=== PATIENT | male | born 1990 | race Caucasian/White ===

== ENCOUNTER 2017-04-26 08:59 | Emergency (ER) | payer OTHER ==
[2017-04-26 09:09] VITALS: BMI 26.6
[2017-04-26] MEDS ORDERED: LORazepam 1 MG TABLET PO ONE (09:32)
[2017-04-26] MEDS ORDERED: LORazepam 0.5 MG TABLET ONE (09:44)
--- NOTE | 2017-04-26 09:44 | PDOC ---
History of Present Illness <Shazia Koch - Last Filed: 04/26/17 10:13> - History of Present Illness Initial Comments: 04/26/17 09:48 "The patient is a 27 year old male, with a significant past medical history of severe anxiety (clonazepam as needed), who presents to the emergency department for evaluation of anxiety and feeling unsafe this morning. The patient states he has been under a great deal of stress at home recently. The patients sister reportedly attempted suicide last week, his grandfather was admitted to the hospital, and more recently, he states he has been having issues with his mothers home health aide. The patient states his boyfriend, at bedside, was attempting to help the aide fix their house phone yesterday when the aide became frustrated and called him horrible names. He states ""yesterday was my birthday so I thought it would be a better day for me"". The patient reports that this morning he was making efforts to call the company that provided the patients mother her home health aide, however, no one answered. He states he became increasingly more anxious on his way to work knowing the health aide would be in the house. He states he began to shake, then he froze to the point I couldn't even get up to walk. He reportedly contained himself enough to get home, sat in a dark corner and cried. The patient states he feels useless and unwanted. He states he does not feel he can make friends at work. He reports feeling unsafe, but when asked if he feels the desire to harm himself or others the patient responds, "I just don't know. I cant even answer that." He reports taking his clonazepam this morning with mild relief of his symptoms. He states he sees a therapist once a week and a psychiatrist once a month. He reportedly saw his therapist last week, but has not been to the psychiatrist in 1.5 months. Pt endorses occasional ETOH and marijuana. Denies any other drug use. Denies any coingestions today. He denies chest pain, shortness of breath, headache and dizziness. He denies fever, chills, nausea, vomit, diarrhea and constipation. He denies dysuria, frequency, urgency and hematuria. Allergies: NKDA " <Juni Fong - Last Filed: 04/29/17 08:47> - General Chief Complaint: Suicidal Stated Complaint: ANXIETY ATTACK Time Seen by Provider: 04/26/17 09:16 Past History <Shazia Koch - Last Filed: 04/26/17 10:13> - Past Medical History COPD: No Psychiatric Problems: Yes (DEPRESSION/ANXIETY.) - Suicide/Smoking/Psychosocial Hx Smoking History: Never smoked Hx Alcohol Use: No Drug/Substance Use Hx: No <AjitJuni - Last Filed: 04/29/17 08:47> - Past Medical History Allergies/Adverse Reactions: Allergies Allergy/AdvReac Type Severity Reaction Status Date / Time Penicillins Allergy Unknown Verified 04/26/17 09:02 Home Medications: Ambulatory Orders Clonazepam [Klonopin -] 0.5 mg PO DAILY 04/26/17 Review of Systems - Review of Systems Comments:: 04/26/17 09:52 """GENERAL/CONSTITUTIONAL: No fever or chills. No weakness. HEAD, EYES, EARS, NOSE AND THROAT: No change in vision. No ear pain or discharge. No sore throat. CARDIOVASCULAR: No chest pain or shortness of breath. RESPIRATORY: No cough, wheezing, or hemoptysis. GASTROINTESTINAL: No nausea, vomiting, diarrhea or constipation. GENITOURINARY: No dysuria, frequency, or change in urination. MUSCULOSKELETAL: No joint or muscle swelling or pain. No neck or back pain. SKIN: No rash NEUROLOGIC: No headache, vertigo, loss of consciousness, or change in strength/ sensation. ENDOCRINE: No increased thirst. No abnormal weight change. HEMATOLOGIC/LYMPHATIC: No anemia, easy bleeding, or history of blood clots. ALLERGIC/IMMUNOLOGIC: No hives or skin allergy. PSYCHIATRIC: (+) anxiety, shaky" <AjtiJuni - Last Filed: 04/29/17 08:47> *Physical Exam - Vital Signs Last Vital Signs Temp Pulse Resp BP Pulse Ox 98.2 F 76 18 116/67 99 04/26/17 09:00 04/26/17 09:00 04/26/17 09:00 04/26/17 09:00 04/26/17 09:00 <Shazia Koch - Last Filed: 04/26/17 10:13> - Vital Signs Last Vital Signs Temp Pulse Resp BP Pulse Ox 98.2 F 76 18 116/67 99 04/26/17 09:00 04/26/17 09:00 04/26/17 09:00 04/26/17 09:00 04/26/17 09:00 - Physical Exam Comments: 04/26/17 09:52 """GENERAL: Awake, alert, and fully oriented, in no acute distress HEAD: No signs of trauma EYES: PERRLA, EOMI, sclera anicteric, conjunctiva clear ENT: Auricles normal inspection, hearing grossly normal, nares patent, oropharynx clear without exudates. Moist mucosa NECK: Nontender, no stepoffs, Normal ROM, supple, no lymphadenopathy, JVD, or masses LUNGS: Breath sounds equal, clear to auscultation bilaterally. No wheezes, and no crackles HEART: Regular rate and rhythm, normal S1 and S2, no murmurs, rubs or gallops ABDOMEN: Soft, nontender, normoactive bowel sounds. No guarding, no rebound. No masses EXTREMITIES: Normal range of motion, no edema. No clubbing or cyanosis. No cords, erythema, or tenderness NEUROLOGICAL: Cranial nerves II through XII intact. 5/5 strength and sensation in all extremities, Normal speech, normal gait SKIN: Warm, Dry, normal turgor, no rashes or lesions noted. PSYCH:" <Juni Fong - Last Filed: 04/29/17 08:47> ED Treatment Course - Medications Given in the ED: ED Medications Discontinued Medications Generic Name Dose Route Start Last Admin Trade Name Daviq PRN Reason Stop Dose Admin Lorazepam 1 mg 04/26/17 09:32 04/26/17 09:50 Ativan - PO 04/26/17 09:33 1 mg ONCE ONE Administration <Shazia Koch - Last Filed: 04/26/17 10:13> Medical Decision Making - Medical Decision Making 04/26/17 10:00 Dr. Stanford was called at 09:45 and the call was returned at 09:55. The patient' s case was discussed and Dr. Stanford has agreed to come evaluate the patient in the next few hours. <Shazia Koch - Last Filed: 04/26/17 10:13> - Medical Decision Making 04/26/17 09:39 27 M with anxiety attack, now improving s/p self-administration of klonopin. Pt in ER expressing passive SI without active plan. No prior attempts. Pt denies HI , denies auditory/visual hallucinations. - Pt medically cleared - Ativan 1mg PO - Psych consult 04/26/17 13:38 Pt seen and evaluated by Dr. Stanford, who has cleared pt for discharge. I discussed the physical exam findings, ancillary test results and final diagnoses with the patient. I answered all of the patient's questions. The patient was satisfied with the care received and felt comfortable with the discharge plan and treatment plan. The patient agrees to follow up with the primary care physician within 24-72 hours. <Juni Fong - Last Filed: 04/29/17 08:47> *DC/Admit/Observation/Transfer - Attestations Scribe Attestion: 04/26/17 10:13 Documentation prepared by Shazia Koch, acting as medical supervisor for Juni Fong MD <Shazia Koch - Last Filed: 04/26/17 10:13> - Attestations Physician Attestion: 04/26/17 13:39 I, Dr. Juni Fong MD, attest that this document has been prepared under my direction and personally reviewed by me in its entirety. I further attest, that it accurately reflects all work, treatment, procedures and medical decision -making performed by me. <Juni Fong - Last Filed: 04/29/17 08:47> Diagnosis at time of Disposition: Anxiety - Discharge Dispostion Disposition: HOME Condition at time of disposition: Stable - Referrals Referrals: Vianney Cm MD [Primary Care Provider] - - Patient Instructions Printed Discharge Instructions: DI for Anxiety -- Adult Additional Instructions: You must call your therapist or psychiatrist today to make an appointment as soon as possible. If you begin to experience severe anxiety, thoughts of hurting yourself or others, or any other concerning symptoms, return to the ER immediately. - Post Discharge Activity Forms/Work/School Notes: My Personal Safety Plan
--- NOTE | 2017-04-26 10:25 | EKG ---
Test Reason : Blood Pressure : / mmHG Vent. Rate : 077 BPM Atrial Rate : 077 BPM P-R Int : 164 ms QRS Dur : 074 ms QT Int : 344 ms P-R-T Axes : 068 049 070 degrees QTc Int : 389 ms NORMAL SINUS RHYTHM NORMAL ECG NO PREVIOUS ECGS AVAILABLE Confirmed by CASPER ZARATE, GARRET ([id number]) on 04/26/2017 10:24:26 AM Referred By: Confirmed By:GARRET SHIRLEY MD
--- NOTE | 2017-04-26 13:32 | CON.PSY ---
Psychiatry Consult Chief Complaint: I had a panic attack this am. I have lot of stress. I dont feel suicidal. Symptoms: reports: Anxiety, Panic Attacks - Previous Psychiatric Treatment Outpatient: Less than 6 mos ago Inpatient: None - Previous Substance Abuse Treatment Outpatient: None Inpatient: None - Reason for Previous Treatment Reason for Previous Treatment: Anxiety or Panic Disorder - Allergies Allergies: Allergies Allergy/AdvReac Type Severity Reaction Status Date / Time Penicillins Allergy Unknown Verified 04/26/17 09:02 - Current Living Status Usual Living Arrangement: With Significant Other - Current Mental Status Evaluation Appearance: Well Groomed Attitude: Cooperative - Affect Affect: Constrictive Appropriateness: Appropriate to Content - Mood Mood: Anxious - Speech/Language Expressive: Coherent - Psychomotor Activity Psychomotor Activity: Normal - Thought Process Thought Process: Intact - Thought Content Hallucinations: Absent Delusions: Absent - Self Perception Self Perception: No Impairment - Cognition Attention: Alert Orientation: Time Memory, Immediate Recall: Intact Memory, Short Term: 3/3 Memory, Remote with Promptin/3 - Concentration Serial Sevens Intact: Yes Simple Calculations Intact: Yes - Abstraction Proverb Interpretation: Intact Judgement: Intact - Insight Insight: Intact - Impulse Control Impulse Control: Good Control - Suicidal Ideation Suicidal Ideation: No - Homicidal Ideation Homicidal Ideation: No Assessment/Plan 1) Patient is not suicidal at this time. 2) discharge when medically clear. 3) will return to [facility] for Psych follow up.
[2017-04-26 14:08] VITALS: BP 116/78; PULSE 74; TEMP 98.1
== END 2017-04-26 14:05 | disposition home or self-care (01) ==
LOC: JER 08:59
DX: F41.8 Other specified anxiety disorders (principal)
CPT/HCPCS: 93005; 93010; 99283-25